=== PATIENT | female | born 1950 | race Caucasian/White ===

== ENCOUNTER 2017-05-07 02:22 | Emergency (ER) | payer OTHER ==
[2017-05-07] MEDS ORDERED: LABETALOL HCL 20MG INJ (02:39)
[2017-05-07 02:49] LABS: ADD MAN DIFF? NO
[2017-05-07 02:51] LABS: BASOPHIL # 0.1 10^3/ul (0.0-0.1); BASOPHILS % 0.6 % (0.0-2.0); EOSINOPHILS # 0.3 10^3/ul (0.0-0.5); EOSINOPHILS % 3.2 % (0.0-7.0); HEMATOCRIT 36.6 % (37.0-47.0); HEMOGLOBIN 11.8 g/dl (12.0-16.0); LYMPHOCYTES # 3.2 10^3/ul (0.8-2.9); LYMPHOCYTES % 29.9 % (15.0-51.0); MEAN CORPUSCULAR HEMOGLOBIN 27.5 pg (29.0-33.0); MEAN CORPUSCULAR HGB CONC 32.2 g/dl (32.0-37.0); MEAN CORPUSCULAR VOLUME 85.3 fl (82.0-101.0); MEAN PLATELET VOLUME 11.3 fl (7.4-10.4); MONOCYTE # 0.7 10^3/ul (0.3-0.9); MONOCYTES % 6.5 % (0.0-11.0); NEUTROPHIL # 6.4 10^3/ul (1.6-7.5); NEUTROPHILS % 59.6 % (39.0-77.0); PLATELET COUNT 238 10^3/UL (140-415); RED BLOOD COUNT 4.29 10^6/ul (4.20-5.40); RED CELL DISTRIBUTION WIDTH 13.2 % (11.5-14.5)
[2017-05-07 02:51] LABS: WHITE BLOOD COUNT 10.7 10^3/ul (4.8-10.8)
[2017-05-07] MEDS: niCARdipine-NS 0.1MG/ML DRIP 200 ML IV (02:56)
[2017-05-07] MEDS ORDERED: hydrALAzine 20 MG INJ (02:57)
[2017-05-07] MEDS: LABETALOL HCL 20MG INJ IV (03:00)
[2017-05-07] MEDS: hydrALAzine 20 MG INJ IV (03:00)
[2017-05-07 03:09] LABS: ANION GAP 19 (8-16); BLOOD UREA NITROGEN 51 mg/dl (7-20); CALCIUM 9.2 mg/dl (8.4-10.2); CARBON DIOXIDE 20 mmol/L (21-31); CHLORIDE 109 mmol/L (97-110); GLUCOSE 188 mg/dl (70-220); POTASSIUM 4.5 mmol/L (3.5-5.1); SODIUM 143 mmol/L (135-144)
[2017-05-07] MEDS: ALTEPLASE (tPA) 1 MG/ML BOLUS SYG IV* (03:18)
[2017-05-07 03:19] LABS: INR 0.86; PROTIME 11.8 Sec (11.9-14.9); PT RATIO 0.9
[2017-05-07] MEDS: ALTEPLASE 100 MG INJ IV* (03:19)
[2017-05-07] MEDS: ROCURONIUM 50 MG INJ IV (03:19)
[2017-05-07] MEDS: ETOMIDATE 20 MG INJ IV (03:19)
[2017-05-07 03:20] LABS: PARTIAL THROMBOPLASTIN TIME 29.2 Sec (25.0-35.0); TROPONIN-I 0.053 ng/ml (0.00-0.12)
[2017-05-07] MEDS ORDERED: PROPOFOL 100 ML (03:20)
[2017-05-07] MEDS: PROPOFOL 100 ML IV (03:23)
[2017-05-07] MEDS: SOD CHLORIDE 0.9% 100 ML (03:50)
[2017-05-07] MEDS: IOHEXOL 300MG/ML 150 ML BTL (03:50)
[2017-05-07 04:00] LABS: HEMOGLOBIN A1C 7.4 % (0-5.9)
[2017-05-07] MEDS: SOD CHLORIDE 0.9% 50 ML IV ×2 (04:16→04:19)
[2017-05-07 04:20] LABS: AADO2 Arterial 236.7 mmHg (7.0-24.0); Arterial Base Excess -4.3 mmol/L (-3.0-3); Arterial Blood Gas Oxygen Sat 95.6 mmHG (95.0-98.0); Arterial COHb 0.3 % (0.0-3.0); Arterial Fraction of Oxyhgb 95.1 % (93.0-99.0); Arterial HCO3 20.2 mmol/L (22.0-26.0); Arterial MetHb 0.2 % (0.0-1.5); Arterial Total Hemglobin 11.8 g/dl (12.0-18.0); Arterial pCO2 35.5 mmhg (35-45); MODE VENT - AC; Site Right Brachial
[2017-05-07 05:31] LABS: ADD UMIC YES; UR ASCORBIC ACID NEGATIVE (NEGATIVE); UR BILIRUBIN (Dip) NEGATIVE (NEGATIVE); UR BLOOD (Dip) NEGATIVE (NEGATIVE); UR CLARITY CLEAR (CLEAR); UR COLOR YELLOW (YELLOW); UR GLUCOSE (Dip) 2+ mg/dL (NEGATIVE); UR KETONES (Dip) NEGATIVE (NEGATIVE); UR LEUKOCYTE ESTERASE (Dip) NEGATIVE Leu/ul (NEGATIVE); UR NITRITE (Dip) NEGATIVE (NEGATIVE); UR RBC 4 /HPF (0-5); UR SPECIFIC GRAVITY (Dip) 1.013 (1.003-1.030); UR TOTAL PROTEIN (Dip) 3+ mg/dl (NEGATIVE); UR UROBILINOGEN (Dip) NEGATIVE (NEGATIVE); UR WBC 1 /HPF (0-5)
[2017-05-07] MEDS ORDERED: ROCURONIUM 50 MG INJ (07:00)
[2017-05-07] MEDS ORDERED: ETOMIDATE 20 MG INJ (07:00)
[2017-05-07 08:20] LABS: AMPHETAMINE/METHAMPHETAMINE Negative (NEGATIVE); BARBITURATES Negative (NEGATIVE); BENZODIAZEPINES Negative (NEGATIVE); CANNABINOIDS Negative (NEGATIVE); COCAINE Negative (NEGATIVE); OPIATES Negative (NEGATIVE)
== END 2017-05-07 10:30 | disposition short-term general hospital (02) ==
LOC: E/R 02:22
DX: I63.9 Cerebral infarction, unspecified (principal); I16.1 Hypertensive emergency; I10 Essential (primary) hypertension; N17.9 Acute kidney failure, unspecified; E11.9 Type 2 diabetes mellitus without complications; Z79.82 Long term (current) use of aspirin; Z79.84 Long term (current) use of oral hypoglycemic drugs
CPT/HCPCS: 31500; 36600; 70450; 70496; 70498; 71045; 80048; 80307; 81001; 82803; 82962; 83036; 84484; 85025; 85610; 85730; 86850; 86900; 86901; 93005; 94002; 96374; 96375; 99291-25